=== PATIENT | male | born 1960 | race Caucasian/White ===

== ENCOUNTER 2023-07-26 10:46 | Outpatient (CLI) | payer BC ==
[2023-07-26 13:07] LABS: Hematocrit 44.1 % (38.8-50.0); Hemoglobin 14.9 g/dL (13.5-17.5); Mean Corpuscular HGB CONC 33.8 g/dL (32.0-36.0); Mean Corpuscular Hemoglobin 31.7 pg (27.0-33.0); Mean Corpuscular Volume 93.8 fl (81.2-95.1); Mean Platelet Volume 10.2 fl (7.4-10.4); Platelet Count 267 10x3/uL (150-450); RBC Distribution Width 11.9 % (11.5-14.5); White Blood Cell (WBC) Count 6.4 10x3/uL (3.5-10.5)
[2023-07-26 13:22] LABS: PTT 28.3 sec (22.0-33.0)
[2023-07-26 14:09] LABS: Prothrombin Time 10.1 sec (9.5-12.1)
== END 2023-07-26 10:47 | disposition home or self-care (01) ==
LOC: LABBT 10:46
PROVIDERS: ATTEND Neurological Surgery
DX: Z01.812 Encounter for preprocedural laboratory examination (principal); M50.121 Cervical disc disorder at C4-C5 level with radiculopathy; M50.122 Cervical disc disorder at C5-C6 level with radiculopathy; M50.123 Cervical disc disorder at C6-C7 level with radiculopathy
CPT/HCPCS: 85027; 85610; 85730

== ENCOUNTER 2023-09-26 10:45 | Outpatient (CLI) | payer BC | END 2023-09-26 10:46 | disposition home or self-care (01) | LOC: SCSRAD 10:45 | PROVIDERS: ATTEND Physician Assistant Surgical | DX: M54.12 Radiculopathy, cervical region (principal); Z98.1 Arthrodesis status | CPT/HCPCS: 72040 ==